=== PATIENT | female | born 2000 | race Caucasian/White ===

== ENCOUNTER 2021-01-18 23:21 | Emergency (ER) | payer BC ==
[~2021-01-18] VITALS: Ht 152.4 cm; Wt 63.5 kg
[2021-01-18 23:21] VITALS: BP_SYST 119
--- NOTE | 2021-01-18 23:26 | NUR ---
SEEN BY MD SMALL IN TRIAGE ROOM.
[2021-01-18] MEDS ORDERED: IPRATROPIUM/ALBUTEROL SULFATE 3 ML AMPUL.NEB (DUONEB) ONE (23:28)
--- NOTE | 2021-01-18 23:30 | NUR ---
Patient to ER bed 5 to gown for evaluation. Side rails up.
[2021-01-18] MEDS ORDERED: ALBU2.5V7 INH ×2 (23:35→23:39)
[2021-01-18] MEDS ORDERED: NEBU-249 MC ×2 (23:35→23:39)
[2021-01-18] MEDS ORDERED: PRED20TA PO ×2 (23:35→23:39)
--- NOTE | 2021-01-18 23:35 | NUR ---
RESPIRATORY THERAPY AT BEDSIDE TO ADMINISTER BREATHING TX.
[2021-01-18] MEDS: IPRATROPIUM/ALBUTEROL SULFATE 3 ML AMPUL.NEB (DUONEB) INH ONE (23:40)
--- NOTE | 2021-01-19 | NUR ---
PATIENT AAOX4 AND AMBULATORY FROM HOME C/O shortness of breath that started 2 days ago. Cause unknown however patient thinks may be secondary to mold exposure at home. Symptoms getting worse. Symptoms provoked by ambulation, better with rest. Symptoms constant. Associated cough and wheeze but no feveR.
[2021-01-19 00:16] VITALS: BP_SYST 119
--- NOTE | 2021-01-19 00:16 | NUR ---
Patient given written and verbal discharge instructions and verbalizes understanding. DR.AZUBUIKE NAHEED RODRIGUEZ discussed with patient the results and treatment provided. Patient in stable condition. ID arm band removed. Rx of PREDNISONE, ALBUTEROL, NEBULIZER given. Patient educated on pain management and to follow up with PMD. Pain Scale 0/10. Opportunity for questions provided and answered. Medication side effect fact sheet provided.
== END 2021-01-19 00:16 | disposition home or self-care (01) ==
LOC: SED 23:21
DX: J45.901 Unspecified asthma with (acute) exacerbation (principal); Z79.899 Other long term (current) drug therapy
CPT/HCPCS: 94640; 99283